=== PATIENT | female | born 1975 ===

== ENCOUNTER 2016-09-29 14:54 | Emergency (ER) | payer OTHER ==
[2016-09-29 14:55] VITALS: BMI 26.2
[2016-09-29 15:02] VITALS: BP 128/84; PULSE 78; RESP 18; TEMP 98.3; O2SAT 100
--- NOTE | 2016-09-29 15:49 | ED PDOC ---
HPI: Chest Pain Time Seen by Provider: 09/29/16 15:12 Chief Complaint (Nursing): Upper Extremity Problem/Injury Chief Complaint (Provider): Chest Pain History Per: Patient History/Exam Limitations: no limitations Onset/Duration Of Symptoms: Days (x1 year) Current Symptoms Are (Timing): Still Present Severity: Moderate Quality: Pressure (left-sided) Associated Symptoms: Other (left calf pain; denies fever, vomiting). denies: Nausea, Dyspnea Additional Complaint(s): Mandy Haywood is a 41 year old female, with no pertinent past medical history, who presents to the ED on 09/29/16 for the evaluation of moderate, left -sided chest pain/pressure that she has experienced x1 year. Pain, reportedly originating in the left side of her neck with radiation into her chest, is further described as atraumatic; accompanied by some associated left calf pain which she has experienced x10 months (s/p ). Denies fever, cough, shortness of breath, nausea or vomiting as well as prior history of DVT or pulmonary embolism. No recent surgeries or use of hormonal therapies. Of note, patient has already been evaluated by a [employer] in [place], [place] for this issue, at which time she reports having been told it was not cardiac related. Patient does not remember name of physician who evaluated her. PMD: Andrews Kirkpatrick Past Medical History Reviewed: Historical Data, Nursing Documentation, Vital Signs Vital Signs: Last Vital Signs Temp 98.3 F 09/29/16 14:57 Pulse 78 09/29/16 14:57 Resp 18 09/29/16 14:57 BP 128/84 09/29/16 14:57 Pulse Ox 100 09/29/16 16:04 - Medical History PMH: No Chronic Diseases - Surgical History Surgical History: - Family History Family History: States: Hypertension Denies: IA, CAD - Social History Current smoker - smoking cessation education provided: No Alcohol: None Drugs: Denies - Home Medications Home Medications: Ambulatory Orders Medication Instructions Recorded Nitrofurantoin Macrocrystals 100 mg PO BID #14 cap 10/25/15 [Macrobid] Naproxen [Naprosyn] 500 mg PO BID PRN #30 tab 09/29/16 - Allergies Allergies/Adverse Reactions: Allergies Allergy/AdvReac Type Severity Reaction Status Date / Time No Known Allergies Allergy Verified 10/25/15 15:41 RAMON Risk Score for UA/NSTEMI - RAMON Risk Score Age > 64: NO 3 or more CAD Risk Factors: NO Known CAD (Stenosis greater than 50%): NO Aspirin use in past 7 days: NO Severe Angina: NO EKG ST changes greater than 0.5mm: NO Positive Cardiac Marker: NO RAMON Score: 0 Risk %: 5% Review of Systems ROS Statement: Except As Marked, All Systems Reviewed And Found Negative Constitutional: Negative for: Fever Cardiovascular: Positive for: Chest Pain (left-sided pain/pressure (x1 yr), atraumatic) Respiratory: Negative for: Cough, Shortness of Breath Gastrointestinal: Negative for: Nausea, Vomiting Musculoskeletal: Positive for: Leg Pain (left calf) Physical Exam - Reviewed Nursing Documentation Reviewed: Yes Vital Signs Reviewed: Yes - Physical Exam Appears: Positive for: Non-toxic, No Acute Distress Head Exam: Positive for: ATRAUMATIC, NORMOCEPHALIC Skin: Positive for: Normal Color, Warm, Dry Eye Exam: Positive for: Normal appearance, PERRL Neck: Positive for: Normal, Painless ROM, Supple Cardiovascular/Chest: Positive for: Regular Rate, Rhythm, Chest Non Tender. Negative for: Murmur Respiratory: Positive for: Normal Breath Sounds. Negative for: Respiratory Distress Gastrointestinal/Abdominal: Positive for: Normal Exam, Soft. Negative for: Tenderness Extremity: Positive for: Normal ROM. Negative for: Calf Tenderness, Swelling Neurologic/Psych: Positive for: Alert, Oriented - Laboratory Results Result Diagrams: 09/29/16 16:25 09/29/16 16:25 - ECG ECG: Positive for: Interpreted By Me ECG Rhythm: Positive for: Sinus Rhythm. Negative for: ST/T Changes O2 Sat by Pulse Oximetry: 100 (RA) Pulse Ox Interpretation: Normal - Radiology X-Ray: Interpreted by Me (CXR) X-Ray Interpretation: No Acute Disease - Progress ED Course And Treament: Duplex LLE: negative for DVT. Medical Decision Making Medical Decision Makin:12 Initial Impression: chest pain, left calf pain Initial Plan: * Duplex LE Vein, Left * CXR * Labs * Troponin I * D-Dimer * Reevaluation Scribe Attestation: Documented by Ana Sampson, acting as a scribe for Duane Hayes PA-C. Provider Scribe Attestation: All medical record entries made by the Scribe were at my direction and personally dictated by me. I have reviewed the chart and agree that the record accurately reflects my personal performance of the history, physical exam, medical decision making, and the department course for this patient. I have also personally directed, reviewed, and agree with the discharge instructions and disposition. Disposition - Clinical Impression Clinical Impression: Chest pain, Leg pain - Patient ED Disposition Is Patient to be Admitted: No - Disposition Disposition: Routine/Home Disposition Time: 17:44 Condition: STABLE Prescriptions: Naproxen [Naprosyn] 500 mg PO BID PRN #30 tab PRN Reason: Pain Instructions: Chest Pain (ED), Leg Pain (ED) Print Language: GREENLANDIC
--- NOTE | 2016-09-29 16:26 | US ---
Left lower extremity ultrasound. Indication: Pain Technique: Duplex ultrasound evaluation of the left lower extremity Comparison: None available Findings: There is normal flow, compressibility, and augmentation of the left common femoral, femoral, and popliteal veins. The left posterior tibial vein appears patent. Impression: No evidence of deep venous thrombosis in the left lower extremity.
[2016-09-29 16:45] LABS: BASO # 0.1 K/uL (0.0-0.2); EOS # 0.1 K/uL (0.0-0.7); HEMATOCRIT 36.7 % (34.0-47.0); LYMPH # 1.9 K/uL (1.0-4.3); LYMPH % 34.5 % (20.0-40.0); MEAN CELL VOLUME 92.7 fl (81.0-99.0); MEAN CORPUSCULAR HEMOGLOBIN 30.9 pg (27.0-31.0); MEAN CORPUSCULAR HGB CONC 33.3 g/dL (33.0-37.0); MEAN PLATELET VOLUME 9.3 fl (7.2-11.7); MONO # 0.4 K/uL (0.0-0.8); MONO % 7.1 % (0.0-10.0); NEUT % 56.4 % (50.0-75.0); RED CELL DISTRIBUTION WIDTH 14.7 % (11.5-14.5); WHITE BLOOD COUNT 5.4 K/uL (4.8-10.8)
--- NOTE | 2016-09-29 17:01 | RAD ---
HISTORY: chest pain COMPARISON: None available. TECHNIQUE: Chest PA and lateral FINDINGS: LUNGS: No focal consolidation. Please note that chest x-ray has limited sensitivity for the detection of pulmonary masses. PLEURA: No significant pleural effusion identified. No definite pneumothorax . CARDIOVASCULAR: The cardiomediastinal silhouette appears within normal limits of size. OSSEOUS STRUCTURES: Degenerative changes. VISUALIZED UPPER ABDOMEN: Unremarkable. OTHER FINDINGS: None. IMPRESSION: No focal consolidation, significant pleural effusion, or definite pneumothorax identified.
[2016-09-29 17:04] LABS: ALB/GLOB RATIO 1.1 (1.0-2.1); ALKALINE PHOSPHATASE 78 U/L (38-126); ALT/SGPT 30 U/L (9-52); AST/SGOT 32 U/L (14-36); BILIRUBIN,TOTAL 0.5 mg/dl (0.2-1.3); BLOOD UREA NITROGEN 10 mg/dl (7-17); CARBON DIOXIDE 23 mmol/L (22-30); CHLORIDE 106 mmol/L (98-107); GFR AFRICAN-AMERICAN > 60; GLUCOSE,RANDOM 94 mg/dL (65-105); POTASSIUM 3.8 MMOL/L (3.6-5.0); SODIUM 143 mmol/l (132-148); TOTAL PROTEIN 7.6 G/DL (6.3-8.2)
== END 2016-09-29 17:59 | disposition home or self-care (01) ==
LOC: H.ER 14:54
DX: R07.9 Chest pain, unspecified (principal); M79.662 Pain in left lower leg